=== PATIENT | male | born 1975 | race Caucasian/White ===

== ENCOUNTER 2018-03-04 15:12 | Emergency (ER) | payer BC ==
[~2018-03-04] VITALS: Ht 185.4 cm; Wt 126.3 kg
[~2018-03-04 15:12] MED LIST: AUGMENTIN875TAB PO; HYDROCHLOROT12.5 MG PO; LISINOPRIL30 MG PO; LISINOPRIL40 MG PO; LORTAB 5/3255 MG PO; NORVASC PO; PAROXETINE20 MG PO; ZESTRIL/PRI20 MG/TAB PO
[2018-03-04] MEDS ORDERED: LISINOP/HCTZ1 TA1 PO (15:24)
[2018-03-04] MEDS ORDERED: NORVASC PO (15:24)
[2018-03-04] MEDS ORDERED: CHOLESTEROL MED (15:27)
[2018-03-04 15:57] LABS: IMMATURE GRANULOCYTES 0.4 % (0.0-1.0); MEAN CELL VOLUME 86.4 fL CALC (80.0-100.0); MEAN CORPUSCULAR HGB 29.5 pG CALC (26.0-32.0); MEAN CORPUSCULAR HGB CONC 34.1 g/L CALC (32.0-36.0); NEUT# 4.44 thou/uL (1.82-7.42); RED BLOOD COUNT 5.09 mill/uL (4.70-6.10); RED CELL DISTRI WIDTH 12.9 % (11.5-15.5)
[2018-03-04] MEDS ORDERED: ATORVASTATIN CA10 MG PO (16:12)
[2018-03-04] MEDS ORDERED: LISINOP/HCTZ1 TA2 PO (16:12)
[2018-03-04 16:22] LABS: ANION GAP 17 (6-22 (CALC)); BUN 19 mg/dL (9-20); BUN/CREATININE RATIO 19 (12-20 (CALC)); CARBON DIOXIDE 24 mmol/l (22-30); CHLORIDE 102 mmol/l (95-108); GFR > 60 ML/MIN (>=60 (CALC)); GFR FOR AFR.AMER. > 60 ML/MIN (>=60 (CALC)); POTASSIUM 4.1 mmol/l (3.5-5.1); SODIUM 139 mmol/l (137-146)
[2018-03-04] MEDS ORDERED: VOLTAREN - GENE75 MG PO (16:56)
[2018-03-04 17:10] VITALS: BP 149/88
== END 2018-03-04 17:10 | disposition home or self-care (01) | DRG 554 ==
LOC: ED 15:12
PROVIDERS: Family Medicine
DX: M15.0 Primary generalized (osteo)arthritis (principal); R60.9 Edema, unspecified; I10 Essential (primary) hypertension